=== PATIENT | male | born 1980 | race Two or more races ===

== ENCOUNTER 2018-01-12 05:40 | Day surgery (SDC) | payer OTHER | END 2018-01-12 14:30 | disposition home or self-care (01) | LOC: CIR.AMB 05:40 | DX: K60.5 Anorectal fistula (principal) ==

== ENCOUNTER 2023-02-22 17:42 | Emergency (ER) | payer OTHER ==
[~2023-02-22] VITALS: Ht 172.7 cm; Wt 70.3 kg
== END 2023-02-22 20:30 | disposition left against medical advice (07) ==
LOC: ER 17:42
DX: K60.4 Rectal fistula (principal)

== ENCOUNTER 2024-05-12 07:41 | Inpatient (IN) | payer OTHER ==
[~2024-05-12] VITALS: Ht 172.7 cm; Wt 72.6 kg
[2024-05-12] MEDS ORDERED: RINGERS SOLUTION,LACTATED 1,000 ML IV STA (09:41)
[2024-05-12] MEDS ORDERED: FAMOtidine 10 MG/ML (4ML VIAL) IV STA (09:42)
[2024-05-12] MEDS ORDERED: MORPHINE SULFATE 4 MG/ML VIAL IV STA (09:48)
[2024-05-12 11:12] LABS: HEMATOCRIT 43.2 % (39.0-48.0); HEMOGLOBIN 15.5 g/dL (13-16.00); MEAN CELL VOLUME 89.1 fL (80.0-100.00); MEAN CORPUSCULAR HEMOGLOBIN 31.9 pg (27.00-32.0); MEAN CORPUSCULAR HGB CONC 35.8 g/dl (32.0-36.0); PLATELET COUNT 257 K/uL (150-450); RED BLOOD COUNT 4.86 M/uL (4.00-6.00)
[2024-05-12 11:29] LABS: PH,URINE 5.5 (5.0-8.0); URINE APPEARANCE Cloudy; URINE BILIRRUBIN Negative (NEGATIVE); URINE BLOOD Negative; URINE COLOR Dark Yellow; URINE GLUCOSE Negative (NEGATIVE); URINE LEUKOCYTE Trace; URINE NITRATE Negative
[2024-05-12 11:32] LABS: URINE BACTERIA 25.1 uL (0.0-1933); URINE CAST 1.67 uL (0.0-1.40); URINE EPITHELIAL CELLS 12.3 uL (0.0-38.8); URINE RBC 8.2 uL (0.0-20.8); URINE WBC 12.9 uL (0.0-23.2)
[2024-05-12 11:36] LABS: INR 1.06; PARTIAL THROMBOPLASTIN TIME 36.2 SECONDS (22.0-34.0); PROTHROMBIN TIME 11.5 SECONDS (9.0-11.5)
[2024-05-12 11:47] LABS: ALBUMIN 3.5 gm/dL (3.4-5.0); BILIRUBIN,CONJUGATED 0.29 mg/dL (0.0-0.2); BILIRUBIN,UNCONJUGATED 0.71 mg/dL (0.0-0.6); CALCIUM 9.3 mg/dL (8.5-10.1); CREATININE SERUM 1.16 mg/dL (0.70-1.30); GFR 69.04; POTASSIUM 4.33 mEq/L (3.5-5.1); TOTAL PROTEIN 8.2 gm/dL (6.4-8.2)
[2024-05-12 11:48] LABS: URINE KETONE 40 (NEGATIVE); URINE PROTEIN 100 (NEGATIVE)
[2024-05-12] MEDS ORDERED: PIPERACILLIN/TAZOBACTAM SODIUM 3.375 GM in 0.9 % SODIUM CHLORIDE 100 ML IV SCH (19:09)
[2024-05-12] MEDS ORDERED: FAMOTIDINE/PF 20 MG in 0.9 % SODIUM CHLORIDE 8 ML IV PUSH STA (19:10)
[2024-05-12] MEDS ORDERED: MORPHINE SULFATE 4 MG/ML VIAL IV PRN (19:15)
[2024-05-12] MEDS ORDERED: ONDANSETRON HCL 2 MG/ML VIAL IV PRN (19:15)
[2024-05-13 01:48] VITALS: BP 105/64; O2SAT 96
[2024-05-13 06:56] LABS: HEMATOCRIT 35.9 % (39.0-48.0); HEMOGLOBIN 12.8 g/dL (13-16.00); MEAN CELL VOLUME 89.9 fL (80.0-100.00); MEAN CORPUSCULAR HEMOGLOBIN 31.9 pg (27.00-32.0); MEAN CORPUSCULAR HGB CONC 35.5 g/dl (32.0-36.0); PLATELET COUNT 243 K/uL (150-450); RED CELL DISTRIBUTION WIDTH 11.8 % (11.5-14.5)
[2024-05-13 08:00] VITALS: BP 127/68; O2SAT 96
[2024-05-13] MEDS ORDERED: MORPHINE SULFATE 4 MG/ML CARTRIDGE IV PRN (15:45)
[2024-05-13 17:00] VITALS: BP 106/67; O2SAT 95
[2024-05-14 01:06] VITALS: BP 123/72; O2SAT 98
[2024-05-14 07:47] LABS: HEMATOCRIT 34.9 % (39.0-48.0); HEMOGLOBIN 12.4 g/dL (13-16.00); MEAN CELL VOLUME 89.2 fL (80.0-100.00); MEAN CORPUSCULAR HEMOGLOBIN 31.8 pg (27.00-32.0); MEAN CORPUSCULAR HGB CONC 35.6 g/dl (32.0-36.0); PLATELET COUNT 271 K/uL (150-450); RED BLOOD COUNT 3.91 M/uL (4.00-6.00); RED CELL DISTRIBUTION WIDTH 11.6 % (11.5-14.5)
[2024-05-14 08:23] VITALS: BP 125/63; O2SAT 98
[2024-05-14 08:23] LABS: ALBUMIN 2.6 gm/dL (3.4-5.0); BILIRUBIN TOTAL 0.7 mg/dL (0.3-1.2); CREATININE SERUM 0.98 mg/dL (0.70-1.30); GFR 83.88; GLOBULINA 3.3 G/DL (2.4-3.5); POTASSIUM 4.03 mEq/L (3.5-5.1); TOTAL PROTEIN 5.9 gm/dL (6.4-8.2)
[2024-05-14 17:00] VITALS: BP 111/79; BP 162/61; O2SAT 95; O2SAT 98
[2024-05-15 00:57] VITALS: BP 120/70; O2SAT 98
[2024-05-15 08:00] VITALS: BP 130/82; O2SAT 99
[2024-05-15 08:20] LABS: HEMATOCRIT 33.4 % (39.0-48.0); HEMOGLOBIN 11.8 g/dL (13-16.00); MEAN CELL VOLUME 90.9 fL (80.0-100.00); MEAN CORPUSCULAR HEMOGLOBIN 32.2 pg (27.00-32.0); MEAN CORPUSCULAR HGB CONC 35.5 g/dl (32.0-36.0); PLATELET COUNT 282 K/uL (150-450); RED BLOOD COUNT 3.67 M/uL (4.00-6.00); RED CELL DISTRIBUTION WIDTH 11.8 % (11.5-14.5)
[2024-05-15] MEDS ORDERED: PREDNISONE 10 MG TABLET PO SCH (09:00)
[2024-05-15] MEDS ORDERED: FAMOTIDINE/PF 20 MG in 0.9 % SODIUM CHLORIDE 100 ML IV SCH (09:00)
[2024-05-15 09:25] LABS: ALBUMIN 2.4 gm/dL (3.4-5.0); BILIRUBIN TOTAL 0.39 mg/dL (0.3-1.2); CALCIUM 8.1 mg/dL (8.5-10.1); CREATININE SERUM 0.91 mg/dL (0.70-1.30); GFR 91.36; GLOBULINA 3.2 G/DL (2.4-3.5); PHOSPHOROUS 4.9 mg/dL (2.5-4.9); POTASSIUM 4.55 mEq/L (3.5-5.1); TOTAL PROTEIN 5.6 gm/dL (6.4-8.2)
[2024-05-15 11:28] LABS: PLATELET ESTIMATE NORMAL (NORMAL)
[2024-05-15 16:00] VITALS: BP 121/82; O2SAT 95
[2024-05-15] MEDS ORDERED: DOXYCYCLINE HYCLATE 100 MG CAPSULE PO SCH (17:00)
[2024-05-16] VITALS: BP 111/60; O2SAT 99
[2024-05-16 08:00] VITALS: BP 119/77; O2SAT 99
== END 2024-05-16 11:03 | disposition home or self-care (01) | DRG 394 ==
LOC: ER 07:42 → SURH 19:47 → SEC-K 19:47 → SURH 20:03
PROVIDERS: General Practice; Internal Medicine Infectious Disease; ADMIT Colon & Rectal Surgery; ATTEND Colon & Rectal Surgery
PROC: BW21YZZ Computerized Tomography (CT Scan) of Abdomen and Pelvis using Other Contrast (ICD-10-PCS; 2024-05-12)
PROC: BW40ZZZ Ultrasonography of Abdomen (ICD-10-PCS; principal; 2024-05-15)
DX: K61.2 Anorectal abscess (principal); A90 Dengue fever [classical dengue]; A92.0 Chikungunya virus disease; E25.0 Congenital adrenogenital disorders associated with enzyme deficiency